=== PATIENT | female | born 1940 | race Caucasian/White ===

== ENCOUNTER 2019-01-31 08:26 | Outpatient (CLI) | payer MEDICARE, OTHER, SELFPAY ==
--- NOTE | ~2019-01-31 | US_ITS ---
EXAMINATION: US paracentesis abd w/image DATE: 01/31/2019 11:28 INDICATION: Malignant right ovarian neoplasm with ascites TECHNIQUE: The procedure and its risks and benefits were discussed with the patient. Potential risks discussed included bleeding and infection. The skin was prepped and draped in sterile fashion. 1% lid ocaine was used for local anesthesia. Under ultrasound guidance, a 5 Fr catheter with trochar was adv anced into the ascites in the right lower quadrant. Fluid was aspirated into vacuum bottles. The cath eter was removed, and a dressing was applied. There were no immediate complications. FINDINGS: Ultrasound images demonstrate ascites and the catheter within the fluid. IMPRESSION: 1. Successful ultrasound-guided paracentesis yielding 5000 mL of sofy-colored fluid. Reviewed, dictated and finalized at location A. MASTER
[2019-01-31 08:58] LABS: Mean Platelet Volume 9.6 fl (7.4-10.4); Platelet Count Result 270 k/mm3 (150-375)
[2019-01-31 09:14] LABS: INR 1.1; Prothrombin Time 13.8 Seconds (11.1-14.7)
== END 2019-01-31 08:27 | disposition home or self-care (01) ==
PROVIDERS: PCP Family Medicine
DX: C56.1 Malignant neoplasm of right ovary (principal)
CPT/HCPCS: 36415; 49083; 85049; 85610

== ENCOUNTER 2019-07-12 09:09 | Outpatient (RCR) | payer OTHER, MEDICARE, SELFPAY ==
[2019-03-10 08:24] LABS: Mean Platelet Volume 10.1 fl (7.4-10.4); Platelet Count Result 323 k/mm3 (150-375)
[2019-03-10 08:34] LABS: Prothrombin Time 12.7 Seconds (11.1-14.7)
[2019-03-10 09:37] LABS: Basophils Percent Auto 0.4 % (0.2-1.2); Eosinophils Percent Auto 0.6 % (0-4.4); Hematocrit 34.8 % (37.0-47.0); Hemoglobin 10.8 g/dL (12.0-15.0); Immature Granulocyte Absolute 0.01 K/mm3 (0.00-0.031); Immature Granulocyte Percent A 0.2 % (0-0.5); Lymphocytes Percent Auto 27.1 % (18.3-44.2); Mean Corpuscular Hemoglobin 28.6 pg (26-34); Mean Corpuscular Volume 92.1 fl (80-100); Monocytes Absolute Auto 0.4 K/mm3 (0.1-0.6); Neutrophils Percent Auto 62.7 % (45.5-73.1); Red Blood Count 3.78 M/mm3 (4.2-5.4); Red Cell Distribution Width 16.9 % (11.5-14.5); White Blood Count 4.8 K/mm3 (4.5-10.0)
[2019-03-10 09:56] LABS: Partial Thromboplastin Time 28.6 SECONDS (22.3-36.8)
[2019-05-08 08:12] LABS: Mean Platelet Volume 9.7 fl (7.4-10.4); Platelet Count Result 350 k/mm3 (150-375)
[2019-05-08 08:24] LABS: INR 0.9; Prothrombin Time 11.8 Seconds (11.1-14.7)
--- NOTE | ~2019-07-12 | US_ITS ---
EXAMINATION: US paracentesis abd w/image DATE: 05/25/2019 10:09 INDICATION: Ascites. TECHNIQUE: The procedure and its risks, benefits, and alternatives were discussed with the patient. P otential risks discussed included bleeding and infection. The skin was prepped and draped in sterile fashion. 1% lidocaine was used for local anesthesia. Under ultrasound guidance, a 5 Fr catheter with trochar was advanced into the ascites in the left lower quadrant. Fluid was aspirated. The catheter w as removed, and a dressing was applied. There were no immediate complications. FINDINGS: Ultrasound images demonstrate ascites and the catheter within the fluid. IMPRESSION: 1. Successful ultrasound-guided paracentesis yielding 4200 mL of sofy-colored fluid. Reviewed, dictated and finalized at location A.
--- NOTE | ~2019-07-12 | US_ITS ---
EXAMINATION: US paracentesis abd w/image DATE: 05/08/2019 09:45 INDICATION: Ascites. TECHNIQUE: The procedure and its risks and benefits were discussed with the patient. Potential risks discussed included bleeding and infection. The skin was prepped and draped in sterile fashion. 1% lid ocaine was used for local anesthesia. Under ultrasound guidance, a 5 Fr catheter with trochar was adv anced into the ascites in the left lower quadrant. Fluid was aspirated into vacuum bottles. The lynn ter was removed, and a dressing was applied. There were no immediate complications. FINDINGS: Ultrasound images demonstrate ascites and the catheter within the fluid. IMPRESSION: 1. Successful ultrasound-guided paracentesis yielding 4200 mL of clear sofy-colored fluid. Reviewed, dictated and finalized at location A. IMPRESSION: 1. Successful ultrasound-guided paracentesis yielding 4200 mL of clear sofy-c olored fluid.
--- NOTE | ~2019-07-12 | US_ITS ---
EXAMINATION: US paracentesis abd w/image DATE: 04/28/2019 10:06 INDICATION: Ascites. TECHNIQUE: The procedure and its risks, benefits, and alternatives were discussed with the patient. P otential risks discussed included bleeding and infection. The skin was prepped and draped in sterile fashion. 1% lidocaine was used for local anesthesia. Under ultrasound guidance, a 5 Fr catheter with trochar was advanced into the ascites in the left lower quadrant. Fluid was aspirated. The catheter w as removed, and a dressing was applied. There were no immediate complications. FINDINGS: Ultrasound images demonstrate ascites and the catheter within the fluid. IMPRESSION: 1. Successful ultrasound-guided paracentesis yielding 4,350 mL of clear, sofy-colored fluid. Reviewed, dictated and finalized at location A. TESTING TECHNICIAN IMPRESSION: 1. Successful ultrasound-guided paracentesis yielding 4,350 mL of clear, sofy -colored fluid.
--- NOTE | ~2019-07-12 | US_ITS ---
EXAMINATION: US paracentesis abd w/image DATE: 07/12/2019 10:09 INDICATION: Ascites. TECHNIQUE: The procedure and its risks and benefits were discussed with the patient. Potential risks discussed included bleeding and infection. The skin was prepped and draped in sterile fashion. 1% lid ocaine was used for local anesthesia. Under ultrasound guidance, a 5 Fr catheter with trochar was adv anced into the ascites in the left lower quadrant. Fluid was aspirated into vacuum bottles. The lynn ter was removed, and a dressing was applied. There were no immediate complications. FINDINGS: Ultrasound images demonstrate ascites and the catheter within the fluid. IMPRESSION: 1. Successful ultrasound-guided paracentesis yielding 3300 mL of clear yellow fluid. Reviewed, dictated and finalized at location A.
--- NOTE | ~2019-07-12 | US_ITS ---
EXAMINATION: US paracentesis abd w/image DATE: 04/11/2019 10:02 INDICATION: Ascites. TECHNIQUE: The procedure and its risks and benefits were discussed with the patient. Potential risks discussed included bleeding and infection. The skin was prepped and draped in sterile fashion. 1% lid ocaine was used for local anesthesia. Under ultrasound guidance, a 5 Fr catheter with trochar was adv anced into the ascites in the left lower quadrant. Fluid was aspirated into vacuum bottles. The lynn ter was removed, and a dressing was applied. There were no immediate complications. FINDINGS: Ultrasound images demonstrate ascites and the catheter within the fluid. IMPRESSION: 1. Successful ultrasound-guided paracentesis yielding 5000 mL of sofy-colored fluid. Reviewed, dictated and finalized at location A. ER BOX TOE
--- NOTE | ~2019-07-12 | US_ITS ---
EXAMINATION: US paracentesis abd w/image DATE: 05/31/2019 11:07 INDICATION: Ascites. TECHNIQUE: The procedure and its risks, benefits, and alternatives were discussed with the patient. P otential risks discussed included bleeding and infection. The skin was prepped and draped in sterile fashion. 1% lidocaine was used for local anesthesia. Under ultrasound guidance, a 5 Fr catheter with trochar was advanced into the ascites in the left lower quadrant. Fluid was aspirated. The catheter w as removed, and a dressing was applied. There were no immediate complications. FINDINGS: Ultrasound images demonstrate ascites and the catheter within the fluid. IMPRESSION: 1. Successful ultrasound-guided paracentesis yielding 3100 mL of dark yellow fluid. Reviewed, dictated and finalized at location A. IMPRESSION: 1. Successful ultrasound-guided paracentesis yielding 3100 mL of dark yellow f luid.
--- NOTE | ~2019-07-12 | US_ITS ---
EXAMINATION: US paracentesis abd w/image DATE: 06/07/2019 09:49 INDICATION: Ascites. TECHNIQUE: The skin was prepped and draped in sterile fashion. 1% lidocaine was used for local anesth esia. Under ultrasound guidance, a 5 Fr catheter with trochar was advanced into the ascites in the le ft lower quadrant. Fluid was aspirated. The catheter was removed, and a dressing was applied. There w ere no immediate complications. FINDINGS: Ultrasound images demonstrate ascites and the catheter within the fluid. IMPRESSION: 1. Successful ultrasound-guided paracentesis yielding 3200 mL of yellow fluid. Reviewed, dictated and finalized at location A.
--- NOTE | ~2019-07-12 | US_ITS ---
EXAMINATION: US paracentesis abd w/image DATE: 03/17/2019 11:23 INDICATION: Ascites. Malignant neoplasm of the right ovary. TECHNIQUE: The procedure and its risks and benefits were discussed with the patient. Potential risks discussed included bleeding and infection. The skin was prepped and draped in sterile fashion. 1% lid ocaine was used for local anesthesia. Under ultrasound guidance, a 5 Fr catheter with trochar was adv anced into the ascites in the left lower quadrant. Fluid was aspirated into vacuum bottles. The lynn ter was removed, and a dressing was applied. There were no immediate complications. FINDINGS: Ultrasound images demonstrate ascites and the catheter within the fluid. IMPRESSION: 1. Successful ultrasound-guided paracentesis yielding 5000 mL of dark yellow fluid. Reviewed, dictated and finalized at location A. R SPECIALIST IMPRESSION: 1. Successful ultrasound-guided paracentesis yielding 5000 mL of dark yellow f luid.
--- NOTE | ~2019-07-12 | US_ITS ---
EXAMINATION: US paracentesis abd w/image DATE: 04/20/2019 11:11 INDICATION: Ascites. TECHNIQUE: The procedure and its risks, benefits, and alternatives were discussed with the patient. P otential risks discussed included bleeding and infection. The skin was prepped and draped in sterile fashion. 1% lidocaine was used for local anesthesia. Under ultrasound guidance, a 5 Fr catheter with trochar was advanced into the ascites in the left lower quadrant. Fluid was aspirated. The catheter w as removed, and a dressing was applied. There were no immediate complications. FINDINGS: Ultrasound images demonstrate ascites and the catheter within the fluid. IMPRESSION: 1. Successful ultrasound-guided paracentesis yielding 4600 mL of clear, yellow fluid. Reviewed, dictated and finalized at location A. TEGIC ACCOUNT EXECUTIVE
--- NOTE | ~2019-07-12 | US_ITS ---
EXAMINATION: US paracentesis abd w/image DATE: 05/17/2019 10:17 INDICATION: Ascites. TECHNIQUE: The procedure and its risks and benefits were discussed with the patient. Potential risks discussed included bleeding and infection. The skin was prepped and draped in sterile fashion. 1% lid ocaine was used for local anesthesia. Under ultrasound guidance, a 5 Fr catheter with trochar was adv anced into the ascites in the left lower quadrant. Fluid was aspirated into vacuum bottles. The lynn ter was removed, and a dressing was applied. There were no immediate complications. FINDINGS: Ultrasound images demonstrate ascites and the catheter within the fluid. IMPRESSION: 1. Successful ultrasound-guided paracentesis yielding 3950 mL of sofy-colored fluid. Reviewed, dictated and finalized at location A.
--- NOTE | ~2019-07-12 | US_ITS ---
EXAMINATION: US paracentesis abd w/image DATE: 03/31/2019 10:02 INDICATION: Ascites. TECHNIQUE: The procedure and its risks, benefits, and alternatives were discussed with the patient. P otential risks discussed included bleeding and infection. The skin was prepped and draped in sterile fashion. 1% lidocaine was used for local anesthesia. Under ultrasound guidance, a 5 Fr catheter with trochar was advanced into the ascites in the left lower quadrant. Fluid was aspirated. The catheter w as removed, and a dressing was applied. There were no immediate complications. FINDINGS: Ultrasound images demonstrate ascites and the catheter within the fluid. IMPRESSION: 1. Successful ultrasound-guided paracentesis yielding 5000 mL of yellow fluid. Reviewed, dictated and finalized at location A. TICS SOFTWARE ENGINEER
--- NOTE | ~2019-07-12 | US_ITS ---
EXAMINATION: US paracentesis abd w/image DATE: 03/10/2019 09:37 INDICATION: Ascites. TECHNIQUE: The procedure and its risks, benefits, and alternatives were discussed with the patient. P otential risks discussed included bleeding and infection. The skin was prepped and draped in sterile fashion. 1% lidocaine was used for local anesthesia. Under ultrasound guidance, a 5 Fr catheter with trochar was advanced into the ascites in the left lower quadrant. Fluid was aspirated. The catheter w as removed, and a dressing was applied. There were no immediate complications. FINDINGS: Ultrasound images demonstrate ascites and the catheter within the fluid. IMPRESSION: 1. Successful ultrasound-guided paracentesis yielding 5000 mL of cloudy, yellow fluid. Reviewed, dictated and finalized at location A. ITORY MAID IMPRESSION: 1. Successful ultrasound-guided paracentesis yielding 5000 mL of cloudy, yello w fluid.
== END 2019-07-12 23:59 | disposition home or self-care (01) ==
LOC: ANHIMG 09:09
PROVIDERS: PCP Family Medicine; Referring Provider Radiology Diagnostic Radiology; Visit Provider Family Medicine
DX: R18.8 Other ascites (principal); C56.1 Malignant neoplasm of right ovary
CPT/HCPCS: 36415; 49083; 85025; 85049; 85610; 85730; C1729

== ENCOUNTER 2019-08-16 09:38 | Outpatient (RCR) | payer OTHER, MEDICARE, SELFPAY ==
[2019-06-21 07:57] LABS: Mean Platelet Volume 9.8 fl (7.4-10.4); Platelet Count Result 339 k/mm3 (150-375)
[2019-06-21 08:11] LABS: Prothrombin Time 12.4 Seconds (11.1-14.7)
[2019-08-02 08:15] LABS: Mean Platelet Volume 9.8 fl (7.4-10.4); Platelet Count Result 292 k/mm3 (150-375)
[2019-08-02 08:22] LABS: INR 0.9; Prothrombin Time 12.1 Seconds (11.1-14.7)
--- NOTE | ~2019-08-16 | US_ITS ---
EXAMINATION: US paracentesis abd w/image DATE: 07/26/2019 10:28 INDICATION: Ascites. TECHNIQUE: The procedure and its risks, benefits, and alternatives were discussed with the patient. P otential risks discussed included bleeding and infection. The skin was prepped and draped in sterile fashion. 1% lidocaine was used for local anesthesia. Under ultrasound guidance, a 5 Fr catheter with trochar was advanced into the ascites in the left lower quadrant. Fluid was aspirated. The catheter w as removed, and a dressing was applied. There were no immediate complications. FINDINGS: Ultrasound images demonstrate ascites and the catheter within the fluid. IMPRESSION: 1. Successful ultrasound-guided paracentesis yielding 4000 mL of yellow fluid. Reviewed, dictated and finalized at location A.
--- NOTE | ~2019-08-16 | US_ITS ---
EXAMINATION: US paracentesis abd w/image DATE: 06/14/2019 10:26 INDICATION: Ascites. TECHNIQUE: The procedure and its risks and benefits were discussed with the patient. Potential risks discussed included bleeding and infection. The skin was prepped and draped in sterile fashion. 1% lid ocaine was used for local anesthesia. Under ultrasound guidance, a 5 Fr catheter with trochar was adv anced into the ascites in the left lower quadrant. Fluid was aspirated into vacuum bottles. The lynn ter was removed, and a dressing was applied. There were no immediate complications. FINDINGS: Ultrasound images demonstrate ascites and the catheter within the fluid. IMPRESSION: 1. Successful ultrasound-guided paracentesis yielding 3600 mL of clear yellow fluid. Reviewed, dictated and finalized at location A.
--- NOTE | ~2019-08-16 | US_ITS ---
EXAMINATION: US paracentesis abd w/image DATE: 08/16/2019 13:09 INDICATION: Ascites. TECHNIQUE: The procedure and its risks and benefits were discussed with the patient. Potential risks discussed included bleeding and infection. The skin was prepped and draped in sterile fashion. 1% lid ocaine was used for local anesthesia. Under ultrasound guidance, a 5 Fr catheter with trochar was adv anced into the ascites in the left lower quadrant. Fluid was aspirated into vacuum bottles. The lynn ter was removed, and a dressing was applied. There were no immediate complications. FINDINGS: Ultrasound images demonstrate ascites and the catheter within the fluid. IMPRESSION: 1. Successful ultrasound-guided paracentesis yielding 2425 mL of clear yellow fluid. Reviewed, dictated and finalized at location A.
--- NOTE | ~2019-08-16 | US_ITS ---
EXAMINATION: US paracentesis abd w/image DATE: 07/05/2019 10:31 INDICATION: Ascites. TECHNIQUE: The procedure and its risks, benefits, and alternatives were discussed with the patient. P otential risks discussed included bleeding and infection. The skin was prepped and draped in sterile fashion. 1% lidocaine was used for local anesthesia. Under ultrasound guidance, a 5 Fr catheter with trochar was advanced into the ascites in the left lower quadrant. Fluid was aspirated. The catheter w as removed, and a dressing was applied. There were no immediate complications. FINDINGS: Ultrasound images demonstrate ascites and the catheter within the fluid. IMPRESSION: 1. Successful ultrasound-guided paracentesis yielding 3600 mL of clear, yellow fluid. Reviewed, dictated and finalized at location A.
--- NOTE | ~2019-08-16 | US_ITS ---
EXAMINATION: US paracentesis abd w/image DATE: 07/19/2019 10:34 INDICATION: Ascites. TECHNIQUE: The skin was prepped and draped in sterile fashion. 1% lidocaine was used for local anesth esia. Under ultrasound guidance, a 5 Fr catheter with trochar was advanced into the ascites in the le ft lower quadrant. Fluid was aspirated. The catheter was removed, and a dressing was applied. There w ere no immediate complications. FINDINGS: Ultrasound images demonstrate ascites and the catheter within the fluid. IMPRESSION: 1. Successful ultrasound-guided paracentesis yielding 2900 mL of clear, yellow fluid. Reviewed, dictated and finalized at location A.
--- NOTE | ~2019-08-16 | US_ITS ---
EXAMINATION: US paracentesis abd w/image DATE: 08/02/2019 09:29 INDICATION: Ascites. TECHNIQUE: The procedure and its risks and benefits were discussed with the patient. Potential risks discussed included bleeding and infection. The skin was prepped and draped in sterile fashion. 1% lid ocaine was used for local anesthesia. Under ultrasound guidance, a 5 Fr catheter with trochar was adv anced into the ascites in the left lower quadrant. Fluid was aspirated into vacuum bottles. The lynn ter was removed, and a dressing was applied. There were no immediate complications. FINDINGS: Ultrasound images demonstrate ascites and the catheter within the fluid. IMPRESSION: 1. Successful ultrasound-guided paracentesis yielding 2450 mL of dark yellow fluid. Reviewed, dictated and finalized at location A. IMPRESSION: 1. Successful ultrasound-guided paracentesis yielding 2450 mL of dark yellow f luid.
--- NOTE | ~2019-08-16 | US_ITS ---
EXAMINATION: US paracentesis abd w/image DATE: 06/28/2019 10:06 INDICATION: Ascites. TECHNIQUE: The procedure and its risks and benefits were discussed with the patient. Potential risks discussed included bleeding and infection. The skin was prepped and draped in sterile fashion. 1% lid ocaine was used for local anesthesia. Under ultrasound guidance, a 5 Fr catheter with trochar was adv anced into the ascites in the left lower quadrant. Fluid was aspirated into vacuum bottles. The lynn ter was removed, and a dressing was applied. There were no immediate complications. FINDINGS: Ultrasound images demonstrate ascites and the catheter within the fluid. IMPRESSION: 1. Successful ultrasound-guided paracentesis yielding 2100 mL of clear yellow fluid. Reviewed, dictated and finalized at location A.
--- NOTE | ~2019-08-16 | US_ITS ---
EXAMINATION: US paracentesis abd w/image DATE: 06/21/2019 12:02 INDICATION: Ascites. TECHNIQUE: The procedure and its risks, benefits, and alternatives were discussed with the patient. P otential risks discussed included bleeding and infection. The skin was prepped and draped in sterile fashion. 1% lidocaine was used for local anesthesia. Under ultrasound guidance, a 5 Fr catheter with trochar was advanced into the ascites in the left lower quadrant. Fluid was aspirated. The catheter w as removed, and a dressing was applied. There were no immediate complications. FINDINGS: Ultrasound images demonstrate ascites and the catheter within the fluid. IMPRESSION: 1. Successful ultrasound-guided paracentesis yielding 3250 mL of sofy-colored fluid. Reviewed, dictated and finalized at location A.
--- NOTE | ~2019-08-16 | US_ITS ---
EXAMINATION: US paracentesis abd w/image DATE: 08/09/2019 10:15 INDICATION: Ascites. TECHNIQUE: The procedure and its risks, benefits, and alternatives were discussed with the patient. P otential risks discussed included bleeding and infection. The skin was prepped and draped in sterile fashion. 1% lidocaine was used for local anesthesia. Under ultrasound guidance, a 5 Fr catheter with trochar was advanced into the ascites in the left lower quadrant. Fluid was aspirated. The catheter w as removed, and a dressing was applied. There were no immediate complications. FINDINGS: Ultrasound images demonstrate ascites and the catheter within the fluid. IMPRESSION: 1. Successful ultrasound-guided paracentesis yielding 3350 mL of clear, yellow fluid. Reviewed, dictated and finalized at location A.
== END 2019-09-12 23:59 | disposition home or self-care (01) ==
LOC: ANHIMG 09:38
PROVIDERS: PCP Family Medicine; Visit Provider Family Medicine
DX: C56.1 Malignant neoplasm of right ovary (principal); R18.8 Other ascites
CPT/HCPCS: 36415; 49083; 85049; 85610